=== PATIENT | female | born 1970 | race Caucasian/White ===

== ENCOUNTER → 2018-05-05 | Outpatient (CLI) | payer OTHER ==
--- NOTE | 2018-05-05 11:11 | MM ---
Reason for exam: clinical finding. Last mammogram was performed 2 years and 11 months ago. History: Family history of breast cancer in paternal grandmother at age 50. Physical Findings: Nurse Summary: 1 x 1cm nodule in the right breast at 9 o'clock at nipple (nurse ts). MG 3D Diag Mammo W/Cad SHAYLA Bilateral CC and MLO view(s) were taken. ML, spot compression MLO, and spot compression CC view(s) were taken of the left breast. Prior study comparison: June 02, 2015, bilateral MG 3d diag mammo w/cad SHAYLA. The breast tissue is heterogeneously dense. This may lower the sensitivity of mammography. There are benign appearing round calcifications in the right breast. No distinct lesion persists on additional views left breast. These results were verbally communicated with the patient and result sheet given to the patient on 05/05/18. ASSESSMENT: Benign, BI-RAD 2 RECOMMENDATION: Routine screening mammogram of both breasts in 1 year. Manage on a clinical basis with regard to right breast.
== END | disposition home or self-care (01) ==
LOC: RADMAMWWP 07:38
PROVIDERS: ATTEND Internal Medicine
DX: N64.4 Mastodynia (principal)
CPT/HCPCS: 77066; G0279; 77062

== ENCOUNTER → 2021-02-27 | Outpatient (CLI) | payer BC ==
[2021-02-27 14:29] LABS: African American GFR (CKD) 82.5 (60.0-200.0); Albumin 4.4 g/dL (3.8-4.9); Albumin/Globulin Ratio 1.97 (1.60-3.17); Anion Gap 11.3 mmol/L (10.00-18.00); BUN/Creat Ratio 16.36 Ratio (12.00-20.00); Blood Urea Nitrogen 15.3 mg/dL (9.0-27.0); Calcium 9.8 mg/dL (8.7-10.3); Carbon Dioxide 23.8 mmol/L (20.0-27.5); Globulin 2.2 g/dL (1.6-3.3); Non-African American GFR(CKD) 71.2 (60.0-200.0); Potassium 4.4 mmol/L (3.5-5.5); T4, Free (Free Thyroxine) 1.13 ng/dL (0.800-1.800); Total Bilirubin 0.2 mg/dL (0.30-1.20); Total Protein 6.6 g/dL (6.2-8.2)
== END | disposition home or self-care (01) ==
LOC: LABWHC1 10:19
PROVIDERS: ATTEND Internal Medicine
DX: H81.4 Vertigo of central origin (principal)
CPT/HCPCS: 36415; 80053; 83036; 84439; 84443; 86769

== ENCOUNTER → 2024-08-13 | Outpatient (CLI) | payer BC ==
--- NOTE | 2024-08-13 12:17 | FL ---
EXAMINATION TYPE: FL barium swallow DATE OF EXAM: 08/13/2024 LAP BANDING LIMITED ESOPHAGRAM: CLINICAL INDICATION: Female, 53 years old with history of R13.10 DYSPHAGIA, UNSPECIFIED, history of l ap band placed 2007 with on and off vomiting over the last year. TECHNIQUE: Limited esophagram is performed utilizing thin liquid barium. 26 seconds of fluoro time and 45 images obtained. TOTAL DAP = 1982.39 COMPARISON: None. FINDINGS: Pre-procedure kinder teacher image shows lap band in satisfactory position in proximal stomach ju st below the gastroesophageal junction, phi angle is within normal limits. The patient then drank ora l contrast. There is good flow of contrast along the course of the esophagus. There is mild to moder ate delay in flow of contrast along the course of the lap band, there is no evidence of contrast extr avasation to suggest leak. Patient does not show symptoms of worse nausea or vomiting. IMPRESSION: No evidence of lap band slippage. Mild to moderate obstruction at lap band site noted. Images saved to PACS for the ordering surgeon. [facility], , 08/13/2024 12:15 PM
== END | disposition home or self-care (01) ==
LOC: RADFLMAIN 11:04
PROVIDERS: ATTEND Surgery
DX: R13.10 Dysphagia, unspecified (principal)
CPT/HCPCS: 74220

== ENCOUNTER → 2024-08-13 | Outpatient (CLI) | payer BC ==
[2024-08-13 10:29] VITALS: BMI 44.1
[2024-08-13 11:35] VITALS: BP 134/83; PULSE 86; RESP 16; TEMP 98.3
== END ==
LOC: BARWHC3 10:05
PROVIDERS: ATTEND Surgery
DX: E66.01 Morbid (severe) obesity due to excess calories (principal); Z53.9 Procedure and treatment not carried out, unspecified reason
CPT/HCPCS: 99202